=== PATIENT | female | born 1945 | race Caucasian/White ===

== ENCOUNTER 2019-08-31 10:17 | Outpatient (CLI) | payer MEDICARE ==
--- NOTE | 2019-08-31 11:15 | MMO ---
Right Breast MAMMO Unilat Diag [facility]OR[facility]. CLINICAL HISTORY: Patient is 73 years old and is seen for diagnostic exam and pain in the lower-outer region of the right breast. 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 The patient has a history of right Lumpectomy in 1991 - malignant - (AGE: 46) and left Stereotatic Biopsy in 1991 - benign - (AGE: 46). VIEWS: The views performed were: right craniocaudal with tomosynthesis; right mediolateral oblique with tomosynthesis; and right mediolateral with tomosynthesis. FILMS COMPARED: The present examination has been compared to a prior imaging study performed at [facility] on 02/27/2019. This study has been interpreted with the assistance of computer-aided detection. MAMMOGRAM FINDINGS: There are scattered fibroglandular densities. There are no suspicious masses, suspicious calcifications, or new areas of architectural distortion. IMPRESSION: THERE IS NO MAMMOGRAPHIC EVIDENCE OF MALIGNANCY. A ROUTINE FOLLOW-UP MAMMOGRAM IN 1 YEAR IS RECOMMENDED. THE RESULTS OF THIS EXAM WERE SENT TO THE PATIENT. ACR BI-RADS Category 1 - Negative MAMMOGRAPHY NOTE: 1. A negative mammogram report should not delay a biopsy if a dominant of clinically suspicious mass is present. 2. Approximately 10% to 15% of breast cancers are not detected by mammography. 3. Adenosis and dense breasts may obscure an underlying neoplasm. Reported by: Nasima JUAREZ Electonically Signed: [id number]
== END 2019-08-31 10:18 | disposition home or self-care (01) ==
LOC: BICMAMMO 10:17
PROVIDERS: ATTEND Family Medicine
DX: N64.4 Mastodynia (principal)
CPT/HCPCS: 77065; G0279

== ENCOUNTER 2019-10-25 10:36 | Outpatient (CLI) | payer MEDICARE ==
--- NOTE | 2019-10-25 11:52 | MRI ---
Exam: Brain MRI without contrast HISTORY: Memory loss. Altered mental status. COMPARISON: None FINDINGS: Calvarial marrow signal intensity: Appropriate T1 signal Gradient echo sequence: No hemorrhage Brain parenchyma: No mass, mass effect or midline shift. Brain volume, age-appropriate. Cortical stevenson-white matter differentiation: Preserved Restricted diffusion: Central arterial flow voids are maintained. Absent restricted diffusion White matter signal intensities:Minimal scattered T2, FLAIR white matter hyperintensities due to patternmaker hand rosalie small vessel ischemic changes Sinuses: Adequate aeration of the paranasal sinuses and mastoid air cells. IMPRESSION: No acute intracranial process.
== END 2019-10-25 10:37 | disposition home or self-care (01) ==
LOC: BICMRI 10:36
PROVIDERS: ATTEND Family Medicine
DX: R41.3 Other amnesia (principal)
CPT/HCPCS: 70551

== ENCOUNTER 2020-04-09 13:57 | Outpatient (CLI) | payer MEDICARE ==
--- NOTE | 2020-04-09 14:47 | MMO ---
Bilateral MAMMO Bilat Screen [facility]DI+[facility]. CLINICAL HISTORY: Patient is 74 years old and is seen for screening. The patient has no family history of breast cancer. The patient has a history of malignant (generic) in the right breast at age 46. The patient has a history of right Lumpectomy in 1991 - malignant and left Stereotatic Biopsy in 1991 - benign. VIEWS: The views performed were: bilateral craniocaudal with tomosynthesis and bilateral mediolateral oblique with tomosynthesis. FILMS COMPARED: The present examination has been compared to prior imaging studies performed at [facility] on 02/27/2019, and at [facility] on 08/31/2019. This study has been interpreted with the assistance of computer-aided detection. MAMMOGRAM FINDINGS: There are scattered fibroglandular densities. There are stable benign appearing calcifications seen in both breasts. There are no suspicious masses, suspicious calcifications, or new areas of architectural distortion. IMPRESSION: THERE IS NO MAMMOGRAPHIC EVIDENCE OF MALIGNANCY. A ROUTINE FOLLOW-UP MAMMOGRAM IN 1 YEAR IS RECOMMENDED. THE RESULTS OF THIS EXAM WERE SENT TO THE PATIENT. ACR BI-RADS Category 2 - Benign finding MAMMOGRAPHY NOTE: 1. A negative mammogram report should not delay a biopsy if a dominant of clinically suspicious mass is present. 2. Approximately 10% to 15% of breast cancers are not detected by mammography. 3. Adenosis and dense breasts may obscure an underlying neoplasm. Reported by: ANAY ANN MD Electonically Signed: [id number]
--- NOTE | 2020-04-09 16:03 | BD ---
Exam: DEXA Bone Density 04/09/20 HISTORY: Postmenopausal. Lumbar Spine: BMD (g/cm2) T-SCORE L1 0.815 -1.6 L2 0.942 -0.8 L3 1.071 -0.1 L4 1.193 +1.2 L1-L4 1.011 -0.3 Left Femoral Neck: 0.691 -1.4 Total Femur: 0.826 -1.0 Impression: Osteopenia of the left femoral neck. Normal bone mineral density of the lumbar spine. Ten year fractu re risk for major osteoporotic fracture is 9.2% and hip fracture 1.6%. Fracture probabilities are roya culated for an untreated patient. POS: GALINA
== END 2020-04-09 13:58 | disposition home or self-care (01) ==
LOC: BICMAMMO 13:57
PROVIDERS: ATTEND Family Medicine
DX: Z12.31 Encounter for screening mammogram for malignant neoplasm of breast (principal); Z13.820 Encounter for screening for osteoporosis; M85.852 Other specified disorders of bone density and structure, left thigh; Z78.0 Asymptomatic menopausal state; Z85.3 Personal history of malignant neoplasm of breast; Z91.89 Other specified personal risk factors, not elsewhere classified; Z98.890 Other specified postprocedural states
CPT/HCPCS: 77063; 77067; 77080

== ENCOUNTER 2021-04-28 13:15 | Outpatient (CLI) | payer MEDICARE | END 2021-04-28 13:16 | disposition home or self-care (01) | LOC: BICMAMMO 13:15 | PROVIDERS: ATTEND Family Medicine | DX: Z12.31 Encounter for screening mammogram for malignant neoplasm of breast (principal); Z85.3 Personal history of malignant neoplasm of breast; Z91.89 Other specified personal risk factors, not elsewhere classified; Z98.890 Other specified postprocedural states | CPT/HCPCS: 77063; 77067 ==

== ENCOUNTER 2021-10-15 09:32 | Outpatient (CLI) | payer MEDICARE | END 2021-10-15 09:33 | disposition home or self-care (01) | LOC: BICCT 09:32 | PROVIDERS: ATTEND Family Medicine | DX: C50.919 Malignant neoplasm of unspecified site of unspecified female breast (principal); R63.4 Abnormal weight loss; I31.3 Pericardial effusion (noninflammatory) | CPT/HCPCS: 71260; 74177; 82565 ==

== ENCOUNTER 2022-05-12 14:00 | Outpatient (CLI) | payer MEDICARE | END 2022-05-12 14:01 | disposition home or self-care (01) | LOC: BICMAMMO 14:00 | PROVIDERS: ATTEND Family Medicine | DX: Z12.31 Encounter for screening mammogram for malignant neoplasm of breast (principal); R92.1 Mammographic calcification found on diagnostic imaging of breast; Z91.89 Other specified personal risk factors, not elsewhere classified; Z85.3 Personal history of malignant neoplasm of breast; Z98.890 Other specified postprocedural states | CPT/HCPCS: 77063; 77067 ==